=== PATIENT | female | born 1985 | race Caucasian/White ===

== ENCOUNTER 2018-09-29 11:25 | Emergency (ER) | payer OTHER ==
[2018-09-29 11:33] VITALS: BP 102/65; PULSE 68; TEMP 98.6; BMI 24.0
[2018-09-29] MEDS ORDERED: FAMOTIDINE 20 MG/50 ML IVPB 20 MG/50 ML MG IVPB ONE ×2 (12:34→12:58)
[2018-09-29] MEDS ORDERED: SODIUM CHLORIDE 1,000 ML IV STA (12:34)
[2018-09-29] MEDS ORDERED: METOCLOPRAMIDE HCL INJECTION 10 MG/2 ML VIAL IVPUSH ONE (12:34)
[2018-09-29] MEDS ORDERED: METOCLOPRAMIDE HCL INJECTION 10 MG/2 ML VIAL ONE (12:58)
[2018-09-29 13:47] LABS: BASO % 0.1 % (0-2.0); EOS % 0.6 % (0-4.5); HEMATOCRIT 43.2 % (32.4-45.2); HEMOGLOBIN 14.7 GM/dL (10.7-15.3); LYMPH % 5.8 % (8-40); MCH 30.9 pg (25.7-33.7); MEAN CELL VOLUME 90.8 fl (80-96); MEAN PLT VOLUME 10.9 fl (7.5-11.1); MONO % 3.3 % (3.8-10.2); NEUT % 90.2 % (42.8-82.8); PLATELET COUNT 248 K/MM3 (134-434); RBC 4.76 M/mm3 (3.60-5.2); RDW 13.7 % (11.6-15.6); WHITE BLOOD COUNT 6.8 K/mm3 (4.0-10.0)
--- NOTE | 2018-09-29 13:59 | PDOC ---
History of Present Illness - General Chief Complaint: Nausea/Vomiting Stated Complaint: VOMITING Time Seen by Provider: 09/29/18 12:16 History Source: Patient Exam Limitations: No Limitations - History of Present Illness Initial Comments: 09/29/18 13:58 33 yo F w/ no sig PMHx comes in c/o sudden onset of diffuse abdominal discomfort , w/ multiple episodes of NBNB vomiting (7 times) and diarrhea (3 times) since 9pm last night after she ate some pork. Other people who ate from the pork are not sick. Also says that at 3am, she started having a progressively worsening diffuse pounding headache, which is similar in nature to headaches which she has had in the past but worse in severity. No dizziness, no weakness, no numbness/tingling, no neck pain/stiffness. (+)mild tactile fever, no recent travel, no rash, no recent antibiotics use. Denies urinary/vaginal symptoms. Pt did not take any meds for symptoms. 09/29/18 15:01 09/29/18 15:06 Past History - Past Medical History Allergies/Adverse Reactions: Allergies Allergy/AdvReac Type Severity Reaction Status Date / Time No Known Allergies Allergy Verified 09/29/18 11:32 Home Medications: Ambulatory Orders Ferrous Sulfate [Feosol] 325 mg PO DAILY 08/05/15 Vit No.130/Iron/Folic [ Vitamins] 1 each PO DAILY 08/05/15 Ibuprofen [Motrin -] 600 mg PO TID #21 tablet 08/06/15 Asthma: No Cancer: No Cardiac Disorders: No COPD: No Diabetes: No HTN: No Seizures: No Thyroid Disease: No - Suicide/Smoking/Psychosocial Hx Smoking History: Never smoked Have you smoked in the past 12 months: No Hx Alcohol Use: No Drug/Substance Use Hx: No Hx Substance Use Treatment: No Review of Systems - Review of Systems Able to Perform ROS?: Yes Constitutional: Yes: Fever, Loss of Appetite, Malaise. No: Chills, Night Sweats HEENTM: No: Eye Pain, Recent change in vision, Throat Pain Respiratory: No: Cough, Shortness of Breath Cardiac (ROS): No: Chest Pain, Palpitations, Chest Tightness ABD/GI: Yes: Diarrhea, Nausea, Vomiting, Abdominal cramping : No: Dysuria, Hematuria Musculoskeletal: No: Back Pain Integumentary: No: Rash Neurological: No: Headache, Numbness, Dizziness Psychiatric: Yes: Change in Appetite Endocrine: No: Unexplained Weight Loss *Physical Exam - Vital Signs Last Vital Signs Temp Pulse Resp BP Pulse Ox 98.6 F 68 18 102/65 99 09/29/18 11:30 09/29/18 11:30 09/29/18 11:30 09/29/18 11:30 09/29/18 11:30 - Physical Exam General Appearance: Yes: Nourished. No: Apparent Distress HEENT: positive: KHANH, Normal ENT Inspection, Normal Voice. negative: Pale Conjunctivae, Scleral Icterus (R), Scleral Icterus (L) Neck: positive: Supple. negative: Decreased range of motion, Tender midline Respiratory/Chest: positive: Lungs Clear, Normal Breath Sounds. negative: Respiratory Distress, Accessory Muscle Use Cardiovascular: positive: Regular Rhythm, Regular Rate Gastrointestinal/Abdominal: positive: Normal Bowel Sounds, Tender (epigastric area solely, (-)cabral's sign, no tenderness at McBurney's point, (-)Rosving/ psoas signs), Soft Musculoskeletal: positive: Normal Inspection. negative: CVA Tenderness, Decreased Range of Motion Extremity: positive: Normal Capillary Refill, Normal Inspection, Normal Range of Motion. negative: Tender, Pedal Edema Integumentary: positive: Normal Color, Dry. negative: Jaundice, Rash Neurologic: positive: Fully Oriented, Alert, Normal Mood/Affect ED Treatment Course - LABORATORY CBC & Chemistry Diagram: 09/29/18 13:18 09/29/18 12:34 - ADDITIONAL ORDERS Additional order review: 09/29/18 13:18 RBC 4.76 MCV 90.8 MCHC 34.0 RDW 13.7 MPV 10.9 Neutrophils % 90.2 H Lymphocytes % 5.8 L D Monocytes % 3.3 L Eosinophils % 0.6 Basophils % 0.1 - Medications Given in the ED: ED Medications Discontinued Medications Generic Name Dose Route Start Last Admin Trade Name Freq PRN Reason Stop Dose Admin Diphenhydramine HCl 25 mg 09/29/18 12:34 09/29/18 13:31 Benadryl Injection - IVPUSH 09/29/18 12:35 25 mg ONCE ONE Administration Famotidine/Sodium Chloride 20 mg in 50 mls @ 100 mls/hr 09/29/18 12:34 13:31 Pepcid 20 Mg Premixed Ivpb - IVPB 09/29/18 13:03 100 mls/hr ONCE ONE Administration Sodium Chloride 1,000 mls @ 1,000 mls/hr 09/29/18 12:34 09/29/18 13:31 Normal Saline - IV 09/29/18 13:33 1,000 mls/hr ASDIR STA Administration Metoclopramide HCl 10 mg 09/29/18 12:34 09/29/18 13:31 Reglan Injection - IVPUSH 09/29/18 12:35 10 mg ONCE ONE Administration Medical Decision Making - Medical Decision Making 09/29/18 14:08 33 yo F p/w NVD, headache, likely AGE w/ dehydration. Will line and lab, check UA, UCG, give pepcid, reglan, benadryl, IV fluids and reassess 09/29/18 15:09 Pt says that all symptoms resolved. She is feeling much better, no PORTER, no abdominal pain, she ate crackers, drank water, tolerated PO WIll discharge with bland diet PMD follow up Return for worsening/concerning symptoms Pt non toxic appearing in NAD Pt verbalizes understanding and agrees with plan *DC/Admit/Observation/Transfer Diagnosis at time of Disposition: Gastroenteritis - Discharge Dispostion Disposition: HOME Condition at time of disposition: Stable - Referrals - Patient Instructions Printed Discharge Instructions: DI for Viral Gastroenteritis -- Adult, Gastroenteritis Diet Additional Instructions: Rest and drink lots of fluids. Eat a bland diet as recommended, no dairy/greasy foods. Follow up with your PMD in 2-3 days for reevaluation. Return for worsening/concerning symptoms - Post Discharge Activity
[2018-09-29 14:08] LABS: ALBUMIN 4.3 g/dl (3.4-5.0); BLOOD UREA NITROGEN 13.7 mg/dL (7-18); CALCIUM 8.6 mg/dL (8.5-10.1); CREATININE 0.6 mg/dL (0.55-1.3); MAGNESIUM 2.4 mg/dL (1.8-2.4); POTASSIUM 4.1 mmol/L (3.5-5.1)
[2018-09-29 14:23] LABS: URINE APPEARANCE CLEAR; URINE BILIRUBIN NEGATIVE (NEGATIVE); URINE COLOR YELLOW; URINE GLUCOSE (UA) NEGATIVE (NEGATIVE); URINE KETONE 2+ (NEGATIVE); URINE LEUK ESTERASE NEGATIVE (NEGATIVE); URINE NITRITE NEGATIVE (NEGATIVE); URINE PROTEIN NEGATIVE (NEGATIVE); URINE UROBILINOGEN 0.2 mg/dL (0.2-1.0)
== END 2018-09-29 15:16 | disposition home or self-care (01) ==
LOC: JER 11:25
PROC: 3E033GC Introduction of Other Therapeutic Substance into Peripheral Vein, Percutaneous Approach (ICD-10-PCS; principal; 2018-09-29)
PROC: 3E033GC Introduction of Other Therapeutic Substance into Peripheral Vein, Percutaneous Approach (ICD-10-PCS; 2018-09-29)
PROC: 3E033GC Introduction of Other Therapeutic Substance into Peripheral Vein, Percutaneous Approach (ICD-10-PCS; 2018-09-29)
DX: K52.9 Noninfective gastroenteritis and colitis, unspecified (principal)
CPT/HCPCS: 36415; 80053; 81003; 83690; 83735; 84100; 84702; 84703; 85025; 87086; 96365; 96375; 99283-25; J7030

== ENCOUNTER 2019-02-17 02:53 | Emergency (ER) | payer OTHER ==
--- NOTE | 2019-02-17 03:29 | PDOC ---
History of Present Illness - General Stated Complaint: SORE THROAT/EAR ACHE Time Seen by Provider: 02/17/19 03:29 History Source: Patient Exam Limitations: No Limitations - History of Present Illness Initial Comments: 02/17/19 03:29 33yo F Past History - Past Medical History Allergies/Adverse Reactions: Allergies Allergy/AdvReac Type Severity Reaction Status Date / Time No Known Allergies Allergy Verified 09/29/18 11:32 Home Medications: Ambulatory Orders Ferrous Sulfate [Feosol] 325 mg PO DAILY 08/05/15 Vit No.130/Iron/Folic [ Vitamins] 1 each PO DAILY 08/05/15 Ibuprofen [Motrin -] 600 mg PO TID #21 tablet 08/06/15 Asthma: No Cancer: No Cardiac Disorders: No COPD: No Diabetes: No HTN: No Seizures: No Thyroid Disease: No - Psycho Social/Smoking Cessation Hx Smoking History: Never smoked Have you smoked in the past 12 months: No Hx Alcohol Use: No Drug/Substance Use Hx: No Hx Substance Use Treatment: No
[2019-02-17 03:32] VITALS: BP 133/76; PULSE 66; TEMP 98; BMI 24.0
[2019-02-17] MEDS ORDERED: AMOX TR/POT CLAV 875MG/125MG TABLETS (FP) PO ONE ×2 (03:45)
--- NOTE | 2019-02-17 03:45 | PDOC ---
History of Present Illness - General Chief Complaint: Sore Throat Stated Complaint: SORE THROAT/EAR ACHE Time Seen by Provider: 02/17/19 03:29 Past History - Past Medical History Allergies/Adverse Reactions: Allergies Allergy/AdvReac Type Severity Reaction Status Date / Time No Known Allergies Allergy Verified 02/17/19 03:32 Home Medications: Ambulatory Orders Amoxicillin/Potassium Clav [Augmentin 875-125 Tablet] 1 each PO BID #14 tablet 02/17/19 Asthma: No Cancer: No Cardiac Disorders: No COPD: No Diabetes: No HTN: No Seizures: No Thyroid Disease: No - Psycho Social/Smoking Cessation Hx Smoking History: Never smoked Have you smoked in the past 12 months: No Hx Alcohol Use: No Drug/Substance Use Hx: No Hx Substance Use Treatment: No *Physical Exam - Vital Signs Last Vital Signs Temp Pulse Resp BP Pulse Ox 98.0 F 66 18 133/76 100 02/17/19 03:31 02/17/19 03:31 02/17/19 03:31 02/17/19 03:31 02/17/19 03:31 - Physical Exam General Appearance: Yes: Nourished, Appropriately Dressed, Mild Distress HEENT: positive: EOMI, KHANH, Normal ENT Inspection, Normal Voice, Symmetrical, TMs Normal, Pharynx Normal Neck: positive: Trachea midline, Supple Respiratory/Chest: positive: Lungs Clear. negative: Respiratory Distress Cardiovascular: positive: Regular Rhythm, Regular Rate, S1, S2 Gastrointestinal/Abdominal: positive: Flat, Soft Musculoskeletal: positive: Normal Inspection Extremity: positive: Normal Inspection Integumentary: positive: Normal Color, Dry, Warm Neurologic: positive: machine operator helper II-XII NML intact, Fully Oriented, Alert, Normal Mood/ Affect, Normal Response, Motor Strength 5/5 Medical Decision Making - Medical Decision Making 02/18/19 02:40 Pt has influenza. She is feeling better in the ER. Ready to go home. Discharge - Discharge Information Problems reviewed: Yes Clinical Impression/Diagnosis: Influenza A, Otitis media Condition: Stable Disposition: HOME - Admission No - Additional Discharge Information Prescriptions: Amoxicillin/Potassium Clav [Augmentin 875-125 Tablet] 1 each PO BID #14 tablet - Follow up/Referral - Patient Discharge Instructions Patient Printed Discharge Instructions: Influenza - Post Discharge Activity
[2019-02-17] MEDS ORDERED: AMOX TR/POT CLAV 875MG/125MG TABLETS (FP) ONE (03:55)
[2019-02-17] MEDS ORDERED: IBUPROFEN 600 MG TABLET (FP) PO ONE (04:26)
== END 2019-02-17 04:35 | disposition home or self-care (01) ==
LOC: JER 02:53
DX: J09.X2 Influenza due to identified novel influenza A virus with other respiratory manifestations (principal); H66.92 Otitis media, unspecified, left ear
CPT/HCPCS: 87070; 87804; 87880; 99282-25

== ENCOUNTER 2021-03-15 19:23 | Emergency (ER) | payer OTHER ==
[2021-03-15 19:29] VITALS: BP 117/76; PULSE 60; TEMP 98.3; BMI 26.9
[2021-03-15] MEDS ORDERED: FAMOTIDINE 20 MG TABLET PO ONE (20:53)
[2021-03-15] MEDS ORDERED: ONDANSETRON *ODT* 4 MG TABLET SL ONE (20:53)
[2021-03-15] MEDS ORDERED: MAG HYDROX/AL HYDROX/SIMETH 30 ML UNIT-DOSE CUP PO ONE (20:53)
[2021-03-15] MEDS ORDERED: FAMOTIDINE 20 MG TABLET ONE (21:27)
[2021-03-15] MEDS ORDERED: MAG HYDROX/AL HYDROX/SIMETH 30 ML UNIT-DOSE CUP ONE (21:28)
[2021-03-15] MEDS ORDERED: ONDANSETRON *ODT* 4 MG TABLET ONE (21:28)
[2021-03-15 22:17] LABS: EPI CELLS >36 /uL (0-25.1); HYALINE CASTS 5 /uL (0-3.1); PH,URINE 8.5 (5.0-8.0); URINE APPEARANCE CLOUDY; URINE BACTERIA 1636 /uL (0-1359); URINE BILIRUBIN NEGATIVE (NEGATIVE); URINE COLOR YELLOW; URINE GLUCOSE (UA) NEGATIVE (NEGATIVE); URINE KETONE 2+ (NEGATIVE); URINE LEUK ESTERASE NEGATIVE (NEGATIVE); URINE NITRITE NEGATIVE (NEGATIVE); URINE PROTEIN 1+ (NEGATIVE); URINE RBC 29 /uL (0-23.9); URINE WBC 23 /uL (0-25.8)
[2021-03-15 22:25] LABS: HCG,QUALITATIVE URINE Negative
== END 2021-03-15 23:11 | disposition home or self-care (01) ==
LOC: JER 19:23
DX: K52.9 Noninfective gastroenteritis and colitis, unspecified (principal)
CPT/HCPCS: 81003; 84703; 99283-25; Q0162

== ENCOUNTER 2024-03-01 11:43 | Emergency (ER) | payer OTHER ==
[2024-03-01 11:51] VITALS: BP 134/67; PULSE 52; RESP 16; TEMP 98.7; BMI 29.5
[2024-03-01] MEDS ORDERED: CYCLOBENZAPRINE HCL 10 MG TABLET (FP) ONE (13:49)
[2024-03-01] MEDS ORDERED: ACETAMINOPHEN 325 MG TABLET (FP) ONE (13:49)
[2024-03-01] MEDS ORDERED: IBUPROFEN 600 MG TABLET (FP) PO ONE (13:50)
[2024-03-01] MEDS: CYCLOBENZAPRINE HCL 10 MG TABLET (FP) PO ONE (13:57)
[2024-03-01] MEDS: ACETAMINOPHEN 325 MG TABLET (FP) PO ONE (13:58)
[2024-03-01] MEDS: IBUPROFEN 600 MG TABLET (FP) PO ONE (13:58)
== END 2024-03-01 13:57 | disposition home or self-care (01) ==
LOC: JERFT 11:43
DX: M62.838 Other muscle spasm (principal); V49.40XA Driver injured in collision with unspecified motor vehicles in traffic accident, initial encounter; Y92.410 Unspecified street and highway as the place of occurrence of the external cause
CPT/HCPCS: 72050-TC-FY; 99283-25